=== PATIENT | male | born 1980 | race Caucasian/White ===

== ENCOUNTER 2018-07-18 18:29 | Inpatient (IN) | payer BC, OTHER ==
[~2018-07-18] VITALS: Ht 182.9 cm; Wt 72.6 kg
--- NOTE | 2018-07-18 19:50 | NUR ---
Pre-admission Assessment Patient is a 38-year old, male, seen at intake, AAOx4 and with no SOB noted. Patient appears intoxicated, flushed from drinking and with clear speech. Patient appears disheveled, unkempt and with strong body odor. Discussed with patient admission policies of the unit. Patient is coherent and able to respond to questions appropriatel. Pt is ambulatory with steady gait. Vital signs taken and as follows: BR=232/71, P=94, O2 sat on RA=96%, RR=18, T=97.9. Pt verbalized instructions and teachings regarding disposal of narcotic and other controlled home meds, unit protocols such as taking of vital signs Q4H and handling and disposal of contraband.
--- NOTE | 2018-07-18 20:15 | NUR ---
Admission Note Patient is a 38-year-old, male, arrived to the floor at 2030 to be admitted for medically supervised withdrawal from Alcohol (Vodka). Patient denies using other substances. The patient stated that he lives around the [place] and lives with friends. 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 The patient appears to be intoxicated from Alcohol, having his last drink around 1700 today. His breath also smells of alcohol and he appears flushed. Patient noted to be melancholic, depressed and with an emotional episode when asked for his reason why he is here. Patient also verbalized that he would soon start to experience withdrawal symptoms because his last drink was "just beer" and not Vodka. Patient stated that he was in care home for 2 weeks and was released last week and started drinking immediately on the day of his release. Per patient, I am tired, so tired from drinking because if I don't drink, I feel all these withdrawal symptoms and it's making me sick. I cannot stop on my own. It is becoming hopeless and I feel helpless. Substance use: Patient explained that after his release from care home, he was staying with his friends drinking Vodka 750 ml daily for the past 1 week. Last drink was on the day of admission at 1700. Per patient, he was drinking Vodka the whole day today and finished 750 ml. His last drink around 1700 was 1 24-oz can of beer after he finished the bottle of Vodka. He started drinking at age 16 and started with drinking beer. Per patient, "I was curious and wanted to try what my friends were drinking." Patient developed a liking to drinking Vodka in his early 30s until now. Patient stated that his treatment history as follows: 1) [facility] x90 days-December to January 2018 2) [facility] x30 days-December 2016 Patient also stated that he was admitted overnight at [facility] between 3-4 weeks ago for blacking out from drinking. He could not recall the exact day but he stated that his friends called paramedics because he became unresponsive. Patient said that he is scared that the next time it will happen he won't wake up. Pt is AAOx4, cooperative and speaks softly and slowly. Patient reports no allergies and follows a regular diet at home. Patient has no Advanced Directive but wants to be Full Code. The patient states that withdrawal symptoms include anxiety, emotional volatility, depression, flushed skin, sweating, photosensitivity, restless legs, nausea, diarrhea, tremors and headaches." Patient denies a history of seizure but verbalized experiencing multiple blackouts after certain nights of really heavy drinking. For patient, heavy drinking would be "around 2 bottles of 750 ml Vodka and mixed with several shots of Whiskey or several 12-oz cans of beer." Per patient, his longest sobriety period was 90 days and it was when he was at [facility] from December to January 2018. The reason for patients relapse was because "I got so frustrated with my life after I had a DUI and got jailed for it. Right after I was released, I felt like nothing's going on with my life and drinking was the easiest option to do that time." Patient stated both of his parents are Alcoholics and that they had a major influence with his drinking besides peer pressure. Some family member and friends are his main support system. Medical and Psych history are Anxiety, Depression (Lexapro), Asthma (Ventolin HFA Inhaler, Arnuity Ellipta Inhaler and Proventil HFA Inhaler) and Bilateral Hand Arthritis (Diclofenac Sodium tube). He also had a recent mole removal (2 months ago) and was prescribed Dapsone and Metronidazole Sodium Gel ointment. Patient verbalized that he is determined to quit this time because I can't live at my friends' couches all the time. I don't want to at a young age too. I mean, I still have decades ahead of me. If I make it right, then it will still be a good life. Patient admitted that he is disappointed with himself but is optimistic that by coming for detox, he made one thing right today. Patient verbalized that he is interested in going to a treatment center after his stay at [facility]. Vital signs are taken and as follows: BP: 122/76, HR: 91, RR: 20, SpO2: 98%, Temp: 98.3. Pulse is palpable and regular. Respirations are even and unlabored. Lung sounds clear. Bowel sounds active x4 quadrants. Last bowel movement was in the morning of today, 07/18/2018. Per patient, his bowel movement is mostly every day. No abdominal pain reported. Skin is intact. Height is 6'0" and weighs 160 lbs per standing scale. Patient stated that he smokes 3-5 cigarette sticks daily. Patient reports no Suicidal Ideation nor Homicidal Ideation at the moment nor any history of both. Educated patient about plan of care including detox, group therapy, individual therapy, and discharge planning. Encouraged patient to be open and honest and verbalized support for patient in his recovery. CIWA assessment deferred due to intoxication status. Dr. Sibley ordered 5-day Ativan on patient, to start tomorrow. Will continue to monitor. Addendum: 07/19/18 at 2049 by MANISHA CARTER RN Additional information: Patient's Primary Care Physician is Dr. Aviles.
[2018-07-18 21:00] VITALS: BP 128/71
[2018-07-18] MEDS ORDERED: TRAZODONE 50 MG TABLET PO ONE (21:15)
[2018-07-18 21:44] LABS: BASOPHILS # (AUTO) 0.1 K/uL (0.0-8.0); BASOPHILS % (AUTO) 0.7 % (0.0-2.0); EOSINOPHILS # (AUTO) 0.2 K/uL (0.0-0.7); EOSINOPHILS % (AUTO) 2.1 % (0.0-7.0); HEMATOCRIT 43.7 % (36.7-47.1); HEMOGLOBIN 15.3 g/dL (12.5-16.3); LYMPHOCYTES # (AUTO) 2.8 K/uL (20.0-40.0); LYMPHOCYTES % (AUTO) 27.3 % (20.5-51.5); MEAN CORPUSCULAR HEMOGLOBIN 31.4 uug (23.8-33.4); MEAN CORPUSCULAR HGB CONC 35 g/dL (32.5-36.3); MONOCYTES # (AUTO) 0.5 K/uL (2.0-10.0); MONOCYTES % (AUTO) 4.8 % (0.0-11.0); NEUTROPHILS # (AUTO) 6.7 K/uL (1.8-8.9); NEUTROPHILS % (AUTO) 65.1 % (38.5-71.5); PLATELET COUNT (AUTO) 300 K/uL (152-348); RED BLOOD CELL COUNT(AUTO) 4.85 MIL/uL (4.06-5.63); WHITE BLOOD COUNT (AUTO) 10.3 K/uL (3.6-10.2)
[2018-07-18] MEDS ORDERED: CLONIDINE HCL 0.1 MG TABLET PO PRN (21:45)
[2018-07-18] MEDS ORDERED: MIRALAX 17 GM POWD.PACK PO PRN (21:45)
[2018-07-18] MEDS ORDERED: ONDANSETRON ODT 4 MG TAB.RAPDIS SL PRN (21:45)
[2018-07-18] MEDS ORDERED: LOPERAMIDE HCL 2 MG CAPSULE PO PRN ×2 (21:45)
[2018-07-18] MEDS ORDERED: MAG HYDROX/AL HYDROX/SIMETH 30 ML LIQUID UDC PO PRN (21:45)
[2018-07-18] MEDS ORDERED: diphenhydrAMINE 50 MG CAPSULE PO PRN (21:45)
[2018-07-18] MEDS ORDERED: THIAMINE HCL 200 MG/2 ML VIAL IM ONE (21:45)
[2018-07-18] MEDS ORDERED: LORAZEPAM 2 MG/1 ML VIAL IM PRN (21:45)
[2018-07-18] MEDS ORDERED: LORAZEPAM 1 MG TABLET PO PRN ×2 (21:45)
[2018-07-18] MEDS ORDERED: HYDROXYZINE PAMOATE 25 MG CAPSULE PO PRN (21:45)
[2018-07-18] MEDS ORDERED: MAGNESIUM HYDROXIDE 30 ML LIQUID UDC PO PRN (21:45)
[2018-07-18] MEDS ORDERED: ESCI20TA PO (21:47)
[2018-07-18] MEDS ORDERED: ALBU8.5H8 IH (21:47)
[2018-07-18] MEDS: MULTIVITAMINS,THERAPEUTIC TABLET PO SCH (21:57)
[2018-07-18] MEDS: THIAMINE HCL 100 MG TABLET PO SCH (21:57)
[2018-07-18 21:58] LABS: BILIRUBIN,TOTAL 0.3 mg/dL (0.2-1.0); MAGNESIUM 1.6 mg/dL (1.8-2.4); POTASSIUM 3.3 mmol/L (3.5-5.1); TOTAL PROTEIN, SERUM 7.4 g/dL (6.4-8.2)
--- NOTE | 2018-07-18 21:59 | NUR ---
PRN Ativan Patient noted with tremors on both hands, with flushed skin and sweating on face. Patient also verbalized being sensitive to light and feels increasing anxiety. CIWA=14. Administered Ativan 1 mg PO PRN. Will reassess.
[2018-07-18 22:00] LABS: *AMPHETAMINE, URINE NEGATIVE (NEGATIVE); *BARBITURATE, URINE NEGATIVE (NEGATIVE); *CANNABINOID, URINE NEGATIVE (NEGATIVE); *COCCAINE, URINE NEGATIVE (NEGATIVE); *OPIATE, URINE NEGATIVE (NEGATIVE); *PHENCYCLIDINE SCREEN,URINE NEGATIVE (NEGATIVE)
[2018-07-18 22:08] LABS: THYROID STIMULATING HORMONE 1.343 mIU/mL (0.358-3.740)
[2018-07-18] MEDS ORDERED: MAGNESIUM OXIDE 400 MG TABLET PO ONE (22:30)
[2018-07-18] MEDS ORDERED: POTASSIUM CHLORIDE 20 MEQ TAB.PRT.SR PO ONE (22:30)
--- NOTE | 2018-07-18 23:00 | NUR ---
Ativan reassess Patient verbalized feeling less anxious, with gross tremors decreasing in intensity. Patient continues to appears flushed and with face appearing moist. Addendum: 07/19/18 at 0307 by MANISHA CARTER RN CIWA=7
[2018-07-19] VITALS: BP 117/68
--- NOTE | 2018-07-19 | NUR ---
CIWA=8 Patient continues to appear flushed, with sweating and is melancholic and with anxiety. Patient verbalized wanting to go back to sleep.
[2018-07-19] MEDS ORDERED: TETR-62 OP (00:31)
[2018-07-19] MEDS ORDERED: ALBU18HF2 IH (00:32)
[2018-07-19] MEDS ORDERED: ALBU6.7H IH (00:32)
[2018-07-19] MEDS ORDERED: FLUT16SP NS (00:32)
[2018-07-19] MEDS ORDERED: MULT-15 PO (00:32)
[2018-07-19] MEDS ORDERED: FLUT100B3 IH (00:32)
[2018-07-19] MEDS ORDERED: DICL100G16 TP (00:32)
[2018-07-19] MEDS ORDERED: MULT-1121 PO (00:32)
[2018-07-19] MEDS ORDERED: METR45CR2 TP (00:32)
[2018-07-19] MEDS ORDERED: DAPS100T2 PO (00:32)
[2018-07-19 04:00] VITALS: BP 120/74
--- NOTE | 2018-07-19 04:00 | NUR ---
CIWA=10 Patient with intermittent nausea, gross tremors, is flushed and with poor concentration. Will continue to monitor.
--- NOTE | 2018-07-19 07:29 | NUR ---
End of Shift Patient is melancholic, in depressed mood and appears flushed and with sweating. With bilateral hand tremors noted. Encouraged patient to take a shower today as he is unkempt, disheveled, with dirty fingernails and with strong body odor. Patient has soft speech and with poor eye contact. Fall, universal, seizure and safety prec in place. Call light within reach. Latest CIWA=10, slept for 8 hours. Endorsed to AM shift nurse for continuity of care.
--- NOTE | 2018-07-19 07:52 | NUR ---
START OF SHIFT NOTE Received report from night nurse, 38 year old male admitted for ETOH withdrawal. Patient has order to start Ativan taper this morning. Per endorsement patient received PRN Ativan 1mg and x1 order of Trazodone effective per night nurse, slept for 8 hours and last CIWA score was 10. Received patient alert awake oriented x4 presented with flat facial expression, anxious, agitated, bilateral hand tremors noted, unkempt, dirty fingers nails, encourage patient to take shower. Patient is due for schedule medications. All safety measures in place, Call light within reach. Will cont to monitor.
[2018-07-19 08:00] VITALS: BP 139/72
[2018-07-19] MEDS: MULTIVITAMINS,THERAPEUTIC TABLET PO SCH (08:19)
[2018-07-19] MEDS: FOLIC ACID 1 MG TABLET PO SCH (08:19)
[2018-07-19] MEDS: THIAMINE HCL 100 MG TABLET PO SCH (08:19)
[2018-07-19] MEDS: LORAZEPAM 1 MG TABLET PO SCH ×4 (08:30→20:22)
--- NOTE | 2018-07-19 08:30 | NUR ---
CIWA ASSESSMENT CIWA score noted 12, patient presented with labile facial expression, anhedonia, unkempt, fatigue, general body aches, anxious, agitated, restless, nausea, bilateral hand tremors noted. Patient was given his scheduled medications. Will cont to monitor.
[2018-07-19] MEDS ORDERED: 5 DAY TAPER OF LORAZEPAM -SERENITY PROTOCOL PO PRN (09:00)
[2018-07-19] MEDS ORDERED: TUBERCULIN,PURIF.PROT.DERIV. 5 TU/0.1 ML TEST ID ONE (09:00)
[2018-07-19 12:00] VITALS: BP 145/78
--- NOTE | 2018-07-19 12:02 | NUR ---
CIWA ASSESSMENT CIWA score noted 13, patient continues to exhibits s/s of withdrawal such as increased anxious, agitated, restless, nausea, labile facial expression, anhedonia, dysphoria, bilateral hand tremors noted. Patient was given his scheduled medication. Will cont to monitor.
[2018-07-19 16:00] VITALS: BP 120/72
--- NOTE | 2018-07-19 16:17 | NUR ---
CIWA ASSESSMENT CIWA score noted 12, patient is in his room continues to exhibits s/s of withdrawal such as anxiety, agitation, restless, anhedonia, dysphoria, bilateral hand tremors noted. Encourage patient to socialized with peers to learn new coping skills. Patient was given his scheduled medication. Will cont to monitor.
[2018-07-19 18:06] LABS: CREATININE 0.9 mg/dL (0.6-1.3); MAGNESIUM 1.7 mg/dL (1.8-2.4); POTASSIUM 4.1 mmol/L (3.5-5.1)
[2018-07-19] MEDS ORDERED: MAGNESIUM OXIDE 400 MG TABLET PO ONE (18:45)
--- NOTE | 2018-07-19 18:54 | NUR ---
MAGNESIUM REPLACED Patient magnesium level was 1.7L. New order to replaced it with Mag-Ox 800mg PO. Administered medication as ordered, patient tolerated well.
--- NOTE | 2018-07-19 19:18 | NUR ---
END OF SHIFT NOTE Gave report to night nurse, patient is admitted for medically supervised from ETOH withdrawal. Patient presented with sad facial expression, flushed face, nausea, diaphoretic, anxiety, agitation, restless, anhedonia, dirty fingers nails, poor oral hygiene, dysphoria. Patient started his scheduled Ativan taper with CIWA score 12. Patient also received PPD on right forearm with no s/s of bleeding noted. Skin intact warm and dry to touch. Patient rested in his room most of the shift. Patient stated I just feel like to sleep and rest. Encourage patient to attend groups activities to learn new coping skills, patient verbalized understanding.
[2018-07-19 20:00] VITALS: BP 122/75
--- NOTE | 2018-07-19 20:00 | NUR ---
Start of Shift Patient appears unkempt and disheveled, continues to have a strong body odor. Patient stated that he took a shower this morning. Encouraged patient to take a shower again in the morning and educated patient regarding the importance of maintaining a good hygiene. Patient continues to be melancholic, in depressed mood and appears flushed and with sweating. With bilateral hand tremors noted. Patient verbalized feeling "tired" and feels "fatigue". Patient has soft speech and with poor eye contact. Fall, universal, seizure and safety prec in place. Call light within reach. Latest CIWA=13. Will continue to monitor.
--- NOTE | 2018-07-19 20:05 | NUR ---
Psych Patient was seen by Dr. Street.
[2018-07-19] MEDS: TRAZODONE 50 MG TABLET PO PRN (20:22)
--- NOTE | 2018-07-19 20:22 | NUR ---
RN Trazodone Patient c/o inability to sleep. Administered Trazodone 50 mg PO PRN. Will reassess.
--- NOTE | 2018-07-19 21:30 | NUR ---
Trazodone reassess Patient asleep on bed, with no SOB nor facial grimacing noted.
[2018-07-20] VITALS: BP 126/69
--- NOTE | 2018-07-20 | NUR ---
CIWA=11 Patient presents with a depressed mood, with strong body odor, appears flushed, with bilateral hand tremors and verbalized that he would like to go back to sleep because he has "very low energy".
[2018-07-20 04:00] VITALS: BP 131/77
--- NOTE | 2018-07-20 04:00 | NUR ---
CIWA=12 Patient continues to be anxious and observed to be easily agitated. With flushed skin on the face, bilateral hand tremors and is avoiding conversation. Patient is melancholic.
[2018-07-20 07:06] LABS: HEPATITIS B SURFACE AG Negative (Negative)
--- NOTE | 2018-07-20 07:17 | NUR ---
End of Shift Patient continues to be depressed, isolative and is flushed and with sweating. With bilateral hand tremors and appears disheveled, with dirty fingernails and strong body odor. Encouraged patient to take a shower again today. Fall, universal, seizure and safety prec in place. Call light within reach. Latest CIWA=12, slept for 8 hours. Endorsed to AM shift nurse for continuity of care.
--- NOTE | 2018-07-20 07:20 | NUR ---
Start Of Shift Report received from assistant casino shift manager nurse. Patient is a 38-year-old, male admitted for medically supervised withdrawal from Alcohol (Vodka). Pt is continues his 5 day Ativan taper . Upon start of shift pt noted laying in his bed with his eyes closed resting, breathing even and unlabored. Pt's room appears unorganized and messy. Pt appears anxious, sweaty and flushed. During assessment, pt is AOx4. Lung sounds clear bilaterally. Radial pulse is regular and non-bounding. Abdomen soft and non-tender. Pt's skin is warm and intact. Pt denies any pain at the moment. Encouraged pt to drink plenty of fluids to keep hydrated and help the detox process. Bed in lowest position. Pt got PRN Trazodone for insomnia last night which was effective per assistant casino shift manager nurse. Side rails up x2. Call light functioning and within reach. All needs attended and met. Will continue to monitor.
[2018-07-20 07:36] LABS: BASOPHILS % (AUTO) 0.8 % (0.0-2.0); EOSINOPHILS # (AUTO) 0.3 K/uL (0.0-0.7); EOSINOPHILS % (AUTO) 5.5 % (0.0-7.0); HEMATOCRIT 40.8 % (36.7-47.1); HEMOGLOBIN 14.2 g/dL (12.5-16.3); LYMPHOCYTES % (AUTO) 35.6 % (20.5-51.5); MEAN CORPUSCULAR HEMOGLOBIN 31.4 uug (23.8-33.4); MEAN CORPUSCULAR HGB CONC 35 g/dL (32.5-36.3); MEAN CORPUSCULAR VOLUME 90.1 fL (73.0-96.2); MONOCYTES # (AUTO) 0.5 K/uL (2.0-10.0); MONOCYTES % (AUTO) 9.4 % (0.0-11.0); NEUTROPHILS # (AUTO) 2.7 K/uL (1.8-8.9); NEUTROPHILS % (AUTO) 48.7 % (38.5-71.5); PLATELET COUNT (AUTO) 209 K/uL (152-348); RED BLOOD CELL COUNT(AUTO) 4.53 MIL/uL (4.06-5.63); WHITE BLOOD COUNT (AUTO) 5.5 K/uL (3.6-10.2)
[2018-07-20 08:00] VITALS: BP 135/80
--- NOTE | 2018-07-20 08:00 | NUR ---
CIWA Assessment Pt presented with sweats, flushed face, anxiety some agitation and yawning. educated pt on relaxation techniques pt verbalized understanding.
[2018-07-20] MEDS ORDERED: Medication Not On Formulary EA (Escitalopram Oxalate (Lexapro) 20 MG) PO SCH (09:00)
[2018-07-20] MEDS: ESCITALOPRAM OXALATE 10 MG TABLET PO SCH (09:10)
[2018-07-20] MEDS: LORAZEPAM 1 MG TABLET PO SCH ×3 (09:10→21:14)
[2018-07-20] MEDS: MULTIVITAMINS,THERAPEUTIC TABLET PO SCH (09:10)
[2018-07-20] MEDS: FOLIC ACID 1 MG TABLET PO SCH (09:10)
[2018-07-20] MEDS: THIAMINE HCL 100 MG TABLET PO SCH (09:10)
[2018-07-20 12:00] VITALS: BP 132/82
[2018-07-20 16:00] VITALS: BP 130/85
--- NOTE | 2018-07-20 19:30 | NUR ---
START OF SHIFT Pt is a 38 y/o male admitted on 07/18/18 for ETOH withdrawal. Pt is on a 5 day Ativan taper, tolerating well. Last CIWA 10 and no PRNs administered during day shift. Upon assessment Pt was found in his room laying in bed watching TV. Pt presented with anxiety, agitation, flushed skin, restlessness, and is fidgety. Medications due. Safety measures in place. Call light within reach. Will continue to monitor.
--- NOTE | 2018-07-20 19:33 | NUR ---
End of shift Report given to shift manager nurse plan of care followed vital signs monitored closely Q4H. Withdrawal symptoms were closely monitored, medication given as scheduled. Initial CIWA 14. Pt encouraged adequate PO fluid intake as tolerated. Pt presented with sweats, flushed face, anxiety some agitation and yawning during the day. Pt received his scheduled taper medication as ordered. Pt did not receive any PRN medications during the day, Last CIWA 10. Pt reported that his taper medications have been working well at controlling his withdrawal symptoms. Pt ate all of his meals, pt attended all groups and activities to learn new coping skills to prevent relapse. Pt denied any SI/HI. All safety measures in place, bed in lowest locked position, call light within reach. All needs met and attended.
[2018-07-20 20:00] VITALS: BP 137/82
--- NOTE | 2018-07-20 20:00 | NUR ---
CIWA 8 Pt presents with anxiety, agitation, tremors, and difficulty falling and staying asleep. Safety measures in place. Call light within reach. Will continue to monitor
[2018-07-20] MEDS: TRAZODONE 50 MG TABLET PO PRN (21:18)
[2018-07-20] MEDS: ALBUTEROL INHALER INH PRN (21:18)
--- NOTE | 2018-07-20 21:18 | NUR ---
PRN ALBUTEROL INHALER AND TRAZODONE ADMINISTRATION Pt complains of wheezing, agitation, and difficulty falling and staying asleep. PRN medication given per order. Safety measures in place. Call light within reach. Will continue to monitor.
--- NOTE | 2018-07-20 22:18 | NUR ---
PRN ALBUTEROL INHALER AND TRAZODONE REASSESSMENT Pt's lung sounds are clear on auscultation. Pt denies any SOB or difficulty breathing. Pt also stated being more at ease. Medications noted effective. Safety measures in place. Call light within reach. Will continue to monitor
--- NOTE | 2018-07-21 | NUR ---
CIWA DEFERRED AND VITAL SIGNS REFUSED Patient is noted in bed with eyes closed. Breathing even and non labored. CIWA and vital signs not able to be completed per order. Safety measures in place. Call light within reach. Will continue to monitor.
--- NOTE | 2018-07-21 07:28 | NUR ---
END OF SHIFT Pt is a 38 y/o male admitted on 07/18/18 for ETOH withdrawal. Pt is on a 5 day Ativan taper, tolerating well.. Pt presented with anxiety, agitation, flushed skin, restlessness, and fidgety. PRN Albuterol inhaler and Trazodone was administered, effective with S/S of withdrawal as verbalized by Pt. Last CIWA 8. Pt slept 6 hours. Intake 855 ml, void x 1, stool x 0. Safety measures in place. Call light within reach. Pts needs have been met. Endorsed to day shift.
--- NOTE | 2018-07-21 07:35 | NUR ---
START OF SHIFT Pt is a 38 yr old male, AA&Ox4. pt was admitted on 07/18/18 for ETOH withdrawal and is on 5 day Ativan taper as ordered. Received report from data reduction technician nurse. Pt received Trazodone PRN and Albuterol HFA PRN as ordered. Medication was effective. Pt slept for 6 hrs. Last CIWA score was 8. Pt is currently in bed sleeping with respirations even and unlabored. Skin is intact, warm and moist to touch. Safety precautions observed. Call light is within reach. Will continue to monitor.
[2018-07-21 08:00] VITALS: BP 128/78
[2018-07-21] MEDS: MULTIVITAMINS,THERAPEUTIC TABLET PO SCH (08:58)
[2018-07-21] MEDS: THIAMINE HCL 100 MG TABLET PO SCH (08:58)
[2018-07-21] MEDS: FOLIC ACID 1 MG TABLET PO SCH (08:58)
[2018-07-21] MEDS: ESCITALOPRAM OXALATE 10 MG TABLET PO SCH (08:58)
[2018-07-21] MEDS: LORAZEPAM 1 MG TABLET PO SCH ×4 (08:58→21:09)
--- NOTE | 2018-07-21 08:58 | NUR ---
CIWA ASSESSMENT Pt is observed with anxiety this morning m/b pt is being fidgety in bed and is observed with flat affect and flushed and clammy skin. CIWA score was 12. Pt was given Valium 10mg PO as scheduled at 0900. Encouraged increase fluid intake for hydration. Will continue to monitor. Addendum: 07/21/18 at 1551 by JOSETTE AMADOR LVN ERROR IN DOCUMENTATION Pt was not given Valium 10mg PO. Pt was given Ativan 1mg PO as scheduled at 0900.
[2018-07-21] MEDS: ALBUTEROL INHALER INH PRN ×2 (09:43→21:10)
--- NOTE | 2018-07-21 09:43 | NUR ---
PRN GIVEN Pt request for Albuterol Inhaler PRN for wheezing. Albuterol Inhaler 2 puffs was administered as ordered. Will continue to monitor. Addendum: 07/21/18 at 2149 by JOSETTE AMADOR LVN ERROR IN DOCUMENTATION 1 PUFF OF ALBUTEROL WAS ADMINISTERED
--- NOTE | 2018-07-21 10:20 | NUR ---
Therapist prompted client to attend group therapy.
[2018-07-21 12:00] VITALS: BP 145/82
--- NOTE | 2018-07-21 12:46 | NUR ---
CIWA ASSESSMENT Pt is c/o of anxiety, sweats, fatigue and difficulty concentrating. Pt is observed with flat affect, facial redness and clammy skin. CIWA score is 8. Ativan 1mg PO as scheduled at 1300 was given as ordered. Encouraged increase fluid intake for hydration. will continue to monitor.
[2018-07-21 16:00] VITALS: BP 129/78
--- NOTE | 2018-07-21 20:00 | NUR ---
CIWA ASSESSMENT Pt is observed with flat affect and flush and clammy skin. Pt is c/o anxiety, agitation, sweats and restlessness. CIWA score is 8. Pt was encouraged increase fluid intake for hydration. Will continue to monitor.
[2018-07-21 20:14] VITALS: BP 139/74
[2018-07-21] MEDS: TRAZODONE 50 MG TABLET PO PRN (21:09)
--- NOTE | 2018-07-21 21:10 | NUR ---
PRN GIVEN Pt requested for Albuterol Inhaler PRN for wheezing. Albuterol Inhaler 1 puffs was administered as ordered. Will continue to monitor.
--- NOTE | 2018-07-22 | NUR ---
CIWA/VITAL SIGNS DEFERRED CIWA assessment and vital signs are deferred at this time. Pt is currently in bed sleeping with respirations seven and unlabored. RR is 16. Safety precautions observed. Will continue to monitor.
--- NOTE | 2018-07-22 00:18 | NUR ---
END OF SHIFT Pt is a 38 yr old male, AA&Ox4. Pt was admitted on 07/18/18 for ETOH withdrawal and is on 5 day Ativan taper as ordered. Pt has been cooperative with medication regimen and plan of care. Pt was observed attending group therapy during the day. Pt was c/o anxiety, agitation, restlessness, sweats and chills. Pt is observed with flat affect, flush and clammy skin and avoidant in eye contact. Pt was given Albuterol Inhaler for wheezing at 942 and 2109, medication was effective. Last CIWA score was 8 at 1999. Pt was encouraged increase fluid intake for hydration. Safety precautions observed. Endorsed to RN nurse to continue with care.
--- NOTE | 2018-07-22 00:19 | NUR ---
START OF SHIFT Pt is a 38 y/o male admitted on 07/18/18 for ETOH withdrawal. Pt is on a 5 day Ativan taper that started on 07/19/18, tolerating well. Last CIWA 8 and PRN Albuterol inhaler x 2 and Trazodone 50 mg administered. Upon assessment pt is sleeping. Endorsement from day shift nurse at 0018. Safety measures in place. Will continue to monitor.
--- NOTE | 2018-07-22 04:00 | NUR ---
CIWA DEFERRED AND VITALS REFUSED Pt laying in bed with eyes closed, CIWA deferred, to be assessed when pt is awake per orders. Vitals refused. Respirations even and unlabored. Safety measures in place. Call light within reach. Will continue to monitor.
--- NOTE | 2018-07-22 07:20 | NUR ---
END OF SHIFT Pt is a 38 y/o male admitted on 07/18/18 for ETOH withdrawal. Pt is on a 5 day Ativan taper that started on 07/19/18, tolerating well. Pt slept through shift since endorsement. No PRNs administered. Last CIWA 8 at 1999. Pt slept 5 hours. Intake 500 ml, void x 1, stool x 0. Safety measures in place. Call light within reach. Pts needs have been met. Endorsed to day shift nurse.
--- NOTE | 2018-07-22 07:30 | NUR ---
START OF SHIFT Pt 38 y/o male admitted for etoh withdrawal. Pt received in room on bed with eyes closed resting, but easily arousable to name. Pt alert and oriented to name, place, and time. Perrla. Skin warm and moist to touch. Respirations even and unlabored. Appears disheveled and unkempt. Hair uncombed. Clothes and empty drink bottles scattered throughout the room. Encouraged to maintain hygiene. Anxious and restless. Pressured speech noted. Bilateral hand tremors noted. Complaints of generalized discomfort. It was reported that pt slept for 5 hours last night. Last ciwa=8 @1999. Pt is on a 5 day ativan taper and is on day 4. Bed on lowest position with side rails x2 up for safety. Call light within reach.
[2018-07-22 08:00] VITALS: BP 107/64
--- NOTE | 2018-07-22 08:00 | NUR ---
CIWA ASSESSMENT ciwa=11. Pt anxious and restless. Pressured speech. Fidgety. Pacing. Bilateral hand tremors noted. Complaints of generalized discomfort.
[2018-07-22] MEDS: MULTIVITAMINS,THERAPEUTIC TABLET PO SCH (08:39)
[2018-07-22] MEDS: THIAMINE HCL 100 MG TABLET PO SCH (08:39)
[2018-07-22] MEDS: FOLIC ACID 1 MG TABLET PO SCH (08:39)
[2018-07-22] MEDS: LORAZEPAM 1 MG TABLET PO SCH ×3 (08:39→21:32)
[2018-07-22] MEDS: ESCITALOPRAM OXALATE 10 MG TABLET PO SCH (08:40)
[2018-07-22] MEDS: ALBUTEROL INHALER INH PRN ×2 (09:17→21:32)
--- NOTE | 2018-07-22 09:17 | NUR ---
PRN ALBUTEROL Pt states has shortness of breath. Wheezing noted on bilateral posterior lower lobes. Albuterol inh prn per MD order given and tolerated well.
--- NOTE | 2018-07-22 10:17 | NUR ---
PRN ALBUTEROL EVAL Pt denies any shortness of breath. No wheezing noted.
[2018-07-22 12:00] VITALS: BP 137/89
--- NOTE | 2018-07-22 12:00 | NUR ---
CIWA ASSESSMENT ciwa=11. Anxious and restless. Pressured speech. Pacing in room and hallway. Fidgety, not able to sit still. Bilateral hand tremors noted.
[2018-07-22 16:00] VITALS: BP 133/70
--- NOTE | 2018-07-22 16:00 | NUR ---
CIWA ASSESSMENT ciwa=11. Anxious and restless. Pressured speech. Fidgety. Bilateral hand tremors noted. Pacing. Generalized discomfort.
--- NOTE | 2018-07-22 18:56 | NUR ---
END OF SHIFT Pt 38 y/o male admitted for etoh withdrawal. Pt alert and oriented to name place, and time. Perrla. Skin warm and moist to touch. Respirations even and unlabored. Appears disheveled and unkempt. Hair uncombed. Empty drink bottles scattered throughout the room. Encouraged to maintain hygiene. Anxious, restless, and observed pacing at times. Bilateral hand tremors noted. Complaints of generalized discomfort. Irritable. Attended group activity. Seen by MD today. Medication complaint. Last ciwa=11 @1600. Pt is on a 5 day ativan taper and is on day 4. Bed on lowest position with side rails x2 up for safety. Call light within reach.
--- NOTE | 2018-07-22 19:33 | NUR ---
START OF SHIFT NOTE Rcvd report from outgoing nurse. Pt is a 38 y/o male A/O to person, place, time, and purpose. Pt was admitted for medically supervised withdrawal from ETOH. Pt is on day 4 of a 5 day Ativan taper. Pt has been presenting w/ anxiety, depressed mood, flat affect, withdrawn mood, tremors, sweats, and restlessness. Pt has a medical h/o asthma. PRN Albuterol inhaler was given and noted effective by outgoing nurse. Last CIWA 11 @ 1600. Call light is within reach. Pt will continue to be monitored and needs met.
[2018-07-22 20:04] VITALS: BP 125/80
--- NOTE | 2018-07-22 20:05 | NUR ---
CIWA ASSESSMENT CIWA 11. Pt has been presenting w/ anxiety, depressed mood, flat affect, withdrawn mood, tremors, sweats, and restlessness. V/S: T:98.0, P:79, RR:18, SPO2:100, BP:125/80.
[2018-07-22] MEDS: TRAZODONE 50 MG TABLET PO PRN (21:32)
--- NOTE | 2018-07-22 21:32 | NUR ---
PRN ALBUTEROL ADMINISTRATION Albuterol INH given for SOB. Pt c/o tightness in chest and difficulty breathing. Noted effective.
--- NOTE | 2018-07-22 21:32 | NUR ---
PRN TRAZODONE ADMINISTRATION Trazodone 50mg given for sleep, Pt c/o insomnia. Will reassess pt in 1 hr.
--- NOTE | 2018-07-22 22:32 | NUR ---
PRN TRAZODONE REASSESSMENT Pt is in bed, but still awake. Pt states they are on the verge of falling asleep. Pt states they are having shoulder pain, which might be keeping him awake. Pt states they will try and fall asleep. Will continue to monitor pt.
[2018-07-22] MEDS: IBUPROFEN 600 MG TABLET PO PRN (23:21)
--- NOTE | 2018-07-22 23:21 | NUR ---
PRN MOTRIN ADMINISTRATION Motrin 600mg given for left shoulder/left upper back pain. Pt states pain is 6/10 and localized from an old injury. Will reassess pt in 1 hr.
--- NOTE | 2018-07-23 00:03 | NUR ---
CIWA DEFERRED. V/S REFUSED Pt is in bed w/ his eyes closed. pt's respirations are unlabored and even.
--- NOTE | 2018-07-23 00:21 | NUR ---
PRN TAMARARIN REASSESSMENT' Pt is in bed w/ his eyes closed. Pt's respirations are unlabored and even.
--- NOTE | 2018-07-23 04:27 | NUR ---
CIWA DEFERRED. V/S REFUSED Pt si in bed w/ his eeys closed. Pt's respirations are unlabored and even.
--- NOTE | 2018-07-23 07:03 | NUR ---
END OF SHIFT NOTE Endorsed pt to oncoming nurse. Pt is a 38 y/o male A/O to person, place, time, and purpose. Pt was admitted for medically supervised withdrawal from ETOH. Pt completed day 4 of a 5 day Ativan taper. Pt continues presenting w/ anxiety, depressed mood, flat affect, withdrawn mood, tremors, sweats, and restlessness. Pt has a medical h/o asthma. PRN Trazodone 50mg given for sleep, noted effective. PRN Motrin 600mg given for upper back pain, noted effective. PRN Albuterol INH given for SOB, noted effective. Pt denies any S/I or H/I. Pts fluid intake was 800ml and he slept for 7 hrs. Last CIWA 11 @ 1999. Call light is within reach.
--- NOTE | 2018-07-23 07:30 | NUR ---
START OF SHIFT Pt 38 y/o male admitted for etoh withdrawal. Pt received in room on bed with eyes closed resting, but easily arousable to name. Pt alert and oriented to name, place, and time. Perrla. Skin warm and moist to touch. Respirations even and unlabored. Appears disheveled. Clothes scattered throughout the room. Encouraged to maintain hygiene. Anxious and restless. Pressured speech. Not able to lay still. It was reported that pt slept for 7 hours last night. Last ciwa =11 @1999. Pt is on a 5 day ativan taper and is on day 5. Bed on lowest position with side rails x 2 up for safety. Call light within reach.
[2018-07-23 08:00] VITALS: BP 107/64
--- NOTE | 2018-07-23 08:00 | NUR ---
CIWA ASSESSMENT ciwa=11. Anxious and restless. Pressured speech. Pacing. Not able to sit still. Bilateral hand tremors noted. Complaints of generalized discomfort.
[2018-07-23] MEDS: THIAMINE HCL 100 MG TABLET PO SCH (08:38)
[2018-07-23] MEDS: FOLIC ACID 1 MG TABLET PO SCH (08:38)
[2018-07-23] MEDS: LORAZEPAM 1 MG TABLET PO SCH ×2 (08:38→20:28)
[2018-07-23] MEDS: MULTIVITAMINS,THERAPEUTIC TABLET PO SCH (08:38)
[2018-07-23] MEDS: ESCITALOPRAM OXALATE 10 MG TABLET PO SCH (08:38)
[2018-07-23] MEDS: ALBUTEROL INHALER INH PRN ×2 (09:03→20:28)
--- NOTE | 2018-07-23 09:03 | NUR ---
ALBUTEROL PRN Pt with complaints of shortness of breath. Albuterol inh prn per MD order given and tolerated well.
--- NOTE | 2018-07-23 10:03 | NUR ---
PRN ALBUTEROL EVAL Pt states medication effective.
[2018-07-23 12:00] VITALS: BP 139/82
--- NOTE | 2018-07-23 12:00 | NUR ---
CIWA ASSESSMENT ciwa=11. Bilateral hand tremors noted. Pressured speech. Anxious and restless. Not able to sit still in bed.
[2018-07-23 16:00] VITALS: BP 127/76
--- NOTE | 2018-07-23 16:00 | NUR ---
CIWA ASSESSMENT ciwa=10. Anxious and restless. Pressured speech. Bilateral hand tremors. Not able to sit still. Intermittent perspirations.
--- NOTE | 2018-07-23 18:40 | NUR ---
END OF SHIFT Pt 38 y/o male admitted for etoh withdrawal. Pt alert and oriented to name place, and time. Perrla. Skin warm and moist to touch. Respirations even and unlabored. Appears disheveled and unkempt. Hair uncombed. Food wrappings and clothes scattered throughout the room. Encouraged to maintain hygiene. Anxious and restless. Pacing. Pressured speech. Fidgety. Irritable. Bilateral hand tremors noted. Mostly isolative to room today with minimal peer interaction. Attended group activity. Seen by MD today. Medication complaint. Last ciwa=10 @1600. Pt is on a 5 day ativan taper and is on day 5. Bed on lowest position with side rails x2 up for safety. Call light within reach.
--- NOTE | 2018-07-23 19:39 | NUR ---
START OF SHIFT NOTE Rcvd report from outgoing nurse. Pt is a 38 y/o male A/O to person, place, time, and purpose. Pt was admitted for medically supervised withdrawal from ETOH. Pt is on day 5 of a 5 day Ativan taper. Pt has been presenting w/ anxiety, tremors, sweats, restlessness, depressed mood, and flat affect. PRN Albuterol was given and noted effective by outgoing nurse. Last CIWA 10 @ 1600. Call light is within reach. Pt will continue to be monitored and needs met.
[2018-07-23 20:06] VITALS: BP 124/73
--- NOTE | 2018-07-23 20:06 | NUR ---
CIWA ASSESSMENT CIWA 9. Pt has been presenting w/ anxiety, tremors, sweats, restlessness, depressed mood, and flat affect. V/S: T:98.0, P:79, RR:16, SPO2:99, BP:124/73.
[2018-07-23] MEDS: IBUPROFEN 600 MG TABLET PO PRN (20:28)
--- NOTE | 2018-07-23 20:28 | NUR ---
PRN MOTRIN ADMINISTRATION Motrin 600mg given for upper back and left should pain. Pt c/o 5/10 pain. Will reassess pt in 1 hr.
--- NOTE | 2018-07-23 21:28 | NUR ---
PRN MOTRIN REASSESSMENT Pt states relief from back pain. Pt states pain is now 0/10. Moustapha, continue to monitor pt.
[2018-07-23] MEDS: TRAZODONE 50 MG TABLET PO PRN (22:56)
--- NOTE | 2018-07-23 22:56 | NUR ---
PRN TRAZODONE ADMINISTRATION Trazodone 50mg given for sleep. Pt c/o insomnia. Will reassess pt in 1 hr.
--- NOTE | 2018-07-23 23:56 | NUR ---
KG VALENZUELADONE REASSESSMENT Pt is in his room working on art therapy. Pt states that he is feeling tired and will fall asleep as soon as he finishes. Will continue to monitor pt.
--- NOTE | 2018-07-24 00:03 | NUR ---
CIWA ASSESSMENT CIWA 8. Pt has been presenting w/ anxiety, tremors, sweats, restlessness, depressed mood, and flat affect. V/S refused.
--- NOTE | 2018-07-24 06:56 | NUR ---
END OF SHIFT NOTE Endorsed pt to oncoming nurse. Pt is a 38 y/o male A/O to person, place, time, and purpose. Pt was admitted for medically supervised withdrawal from ETOH. Pt completed day 5 of a 5 day Ativan taper. Pt continues presenting w/ anxiety, tremors, sweats, body aches, restlessness, depressed mood, and flat affect. Pt denies any S/I or H/I. PRN Albuterol, Trazodone, and Motrin were given throughout the night and noted effective. Pts fluid intake was 500ml and he slept for 6 hrs. Last CIWA 8 @ 0000. Call light is within reach.
--- NOTE | 2018-07-24 07:30 | NUR ---
Start of shift note; Received report from night nurse. Patient is a 38 year old male admitted on 07/18/18 for ETOH withdrawal. Patient is AOX4, presented with intermittent sweats, anxiety, stomach cramps, fatigue, insomnia. Educated patient regarding the importance of compliance to treatment and medication regime, patient verbalized understanding. Encouraged patient to participate in group activities and therapies. All safety measures secured. Will continue to monitor patient.
[2018-07-24 08:00] VITALS: BP 106/61
--- NOTE | 2018-07-24 08:00 | NUR ---
CIWA Assessment; Patient is AOX4, with current CIWA score of 10 presented with intermittent sweats, anxiety, stomach cramps, fatigue, insomnia. Will continue to monitor patient for further s/s of withdrawals.
[2018-07-24] MEDS: FOLIC ACID 1 MG TABLET PO SCH ×2 (09:06→20:38)
[2018-07-24] MEDS: THIAMINE HCL 100 MG TABLET PO SCH (09:06)
[2018-07-24] MEDS: MULTIVITAMINS,THERAPEUTIC TABLET PO SCH (09:06)
[2018-07-24] MEDS: ESCITALOPRAM OXALATE 10 MG TABLET PO SCH (09:06)
--- NOTE | 2018-07-24 10:20 | NUR ---
Therapist prompted client to attend all group therapy sessions and client agreed to do so.
[2018-07-24 12:00] VITALS: BP 120/73
[2018-07-24] MEDS: IBUPROFEN 600 MG TABLET PO PRN ×2 (12:18→20:42)
--- NOTE | 2018-07-24 12:19 | NUR ---
PRN Medication; Patient is complaining of back pain rated 6/10 on pain scale. PRN Motrin 600mg PO given for pain. Will continue to monitor patient for effectiveness of medication.
--- NOTE | 2018-07-24 13:19 | NUR ---
Re-assessment; Patient denies pain at this time. PRN medication noted to be effective.
--- NOTE | 2018-07-24 13:37 | NUR ---
Endorsement note: Detailed report given to covering nurse. Patient is currently in his room, no complaints noted at this them. Met all needs. Endorsed to covering nurse.
--- NOTE | 2018-07-24 13:38 | NUR ---
RECEIVED CARE care received from primary nurse, All pertinent information discussed. Patient is in stable condition, no pain or discomfort reported at this time.
[2018-07-24] MEDS ORDERED: TRAZ-213 PO (14:50)
[2018-07-24] MEDS ORDERED: ESCI10TA PO (14:50)
[2018-07-24] MEDS: METHOCARBAMOL 750 MG TABLET PO PRN ×2 (15:50→20:42)
--- NOTE | 2018-07-24 15:50 | NUR ---
PRN ROBAXIN Patient reported myalgia 5/10, PRN Robaxin 750mg PO as ordered. Will cont to monitor and reassess.
[2018-07-24 16:00] VITALS: BP 140/75
--- NOTE | 2018-07-24 16:00 | NUR ---
CIWA ASSESSMENT CIWA score noted 10, patient is in his room continues to exhibits s/s of withdrawal such as anxiety, agitation, restless, anhedonia, dysphoria, bilateral hand tremors noted, myalgia. Encourage patient to socialized with peers to learn new coping skills. Patient verbalized understanding. Will cont to monitor.
--- NOTE | 2018-07-24 16:50 | NUR ---
ROBAXIN REASSESSMENT Patient reported medication was effective myalgia lower to 2/10.
--- NOTE | 2018-07-24 19:23 | NUR ---
END OF SHIFT NOTE Gave report to night nurse, patient admitted for ETOH withdrawal. Patient completed his Ativan taper tolerated well. Patient set for discharge in AM. During shift patient received scheduled medications along with PRN Robaxin noted to be effective. Patient rested in his room most of the shift. Encourage patient to attend groups activities to learn new coping skills, patient verbalized understanding. Endorsed patient to night nurse in stable condition.
--- NOTE | 2018-07-24 19:30 | NUR ---
Start of Shift report: Admitted for etoh w/d. Completed 5 day atzach alatorre, Attending and participating in groups. Continue to observe for fall sz and w/d sx encouraged po fluids and to obtain a sponsor in aa meetings. D/c tomorrow am . Siderails up Call light within reach.
[2018-07-24 20:00] VITALS: BP 122/73
--- NOTE | 2018-07-24 20:00 | NUR ---
COW CIWA CIWA 9 Tremors, anxiety and agitation COW 6 anxious Tremors
[2018-07-24] MEDS: TRAZODONE 50 MG TABLET PO PRN (21:58)
[2018-07-24] MEDS: ALBUTEROL INHALER INH PRN (21:59)
--- NOTE | 2018-07-24 22:00 | NUR ---
PRN iburpofen and robaxin c/o 5-10 generalize pain given ibuprofen 600 mg and robaxin 750 mg effective after 45 minutes. 1-10 pain level
[2018-07-25] VITALS: BP 122/73
--- NOTE | 2018-07-25 | NUR ---
CIWA COW and v/s Eyes closed resp even and unlab appears resting comfortably
--- NOTE | 2018-07-25 04:14 | NUR ---
Deferred CIWA/COW and V/s Eyes closed resp even and unlab appears resting comfortably
[2018-07-25 04:25] VITALS: BP 122/73
--- NOTE | 2018-07-25 06:10 | NUR ---
End of Shift report: Admitted for etoh w/d. Completed 5 day atzach alatorre,Given prn ibuprofen and robaxin Attending and participating in groups. Continue to observe for fall sz and w/d sx encouraged po fluids and to obtain a sponsor in aa meetings. D/c in am . Siderails up Call light within reach. Slept 7.5 hr during the shift.
--- NOTE | 2018-07-25 07:40 | NUR ---
START OF SHIFT NOTE Received report from night nurse, 38 year old male admitted for ETOH withdrawal and patient completed his Ativan taper tolerated well. Per endorsement patient received PRN Motrin,Robaxin effective per night nurse, slept for 8 hours and last CIWA score was 9. Received patient alert awake oriented x4 presented with flat facial expression, anxious, agitated. Patient is set for discharge today. All safety measures in place, Will cont with plan of care.
[2018-07-25 08:00] VITALS: BP 103/60
[2018-07-25] MEDS: THIAMINE HCL 100 MG TABLET PO SCH (08:21)
[2018-07-25] MEDS: MULTIVITAMINS,THERAPEUTIC TABLET PO SCH (08:22)
[2018-07-25] MEDS: ESCITALOPRAM OXALATE 10 MG TABLET PO SCH (08:22)
[2018-07-25] MEDS: FOLIC ACID 1 MG TABLET PO SCH (08:22)
--- NOTE | 2018-07-25 09:35 | NUR ---
DISCHARGE NOTE Patient is alert awake oriented discharge from [facility] in stable condition. Vital signs WNL. Skin intact warm and dry to touch. Patient denies any SI/HI. All discharge paper work completed signed and dated. All belongings returned to the patient including his home medication and prescriptions. Educated patient regarding importance of going to the treatment, patient verbally understand. Patient discharge from [facility] on 07/25/18 at 0935 in stable condition.
== END 2018-07-25 09:35 | disposition other institution (70) | DRG 895 ==
LOC: SRC 19:08
PROVIDERS: ADMIT Family Medicine Addiction Medicine; ATTEND Family Medicine Addiction Medicine
PROC: HZ2ZZZZ Detoxification Services for Substance Abuse Treatment (ICD-10-PCS; principal; 2018-07-18)
PROC: HZ41ZZZ Group Counseling for Substance Abuse Treatment, Behavioral (ICD-10-PCS; 2018-07-19)
PROC: HZ31ZZZ Individual Counseling for Substance Abuse Treatment, Behavioral (ICD-10-PCS; 2018-07-21)
DX: F10.230 Alcohol dependence with withdrawal, uncomplicated (principal); Y90.9 Presence of alcohol in blood, level not specified; F95.2 Tourette's disorder; M19.042 Primary osteoarthritis, left hand; M19.041 Primary osteoarthritis, right hand; J45.909 Unspecified asthma, uncomplicated; Z79.52 Long term (current) use of systemic steroids; F41.1 Generalized anxiety disorder; Z65.3 Problems related to other legal circumstances; Z81.8 Family history of other mental and behavioral disorders; E87.6 Hypokalemia; E83.42 Hypomagnesemia
CPT/HCPCS: 36415; 70030-TC; 80307; 83690; 83735; 84443; 85025; 86580; 86592; 86705; 86803; 87340; 87806; A4663; G0480